=== PATIENT | female | born 1930 | race Caucasian/White ===

== ENCOUNTER 2016-08-14 21:17 | Inpatient (IN) | payer MEDICARE ==
--- NOTE | ~2016-08-14 | CN ---
Consultation Report [facility] [address] [place]. [address] NAME: JUJU MORRIS : 34 STATUS : ADM IN PAT#: [id number] AGE: 86 ADM/REG DATE : 08/15/16 MR#: [id number] REPORT SERV DATE: 08/17/16 DICTATED BY: TERRY GRACIA DATE: 08/17/16 REPORT STATUS : Draft TRANSCRIBED BY: MODL DATE: 08/17/16 INFECTIOUS DISEASE CONSULT DATE OF CONSULTATION: REASON FOR CONSULT: Bacteremia of unknown source. HISTORY OF PRESENT ILLNESS: An 86 years old white lady with history of paroxysmal atrial fibrillation, hypertension, hyperlipidemia, right knee replacement who was admitted for acute onset of chills with some mental status changes. There are no warning signs. She just had dinner when she started shaking. Her daughter was called and took her to the emergency room. The daughter spent the afternoon with her parents and everything was fine. When the daughter came back, the patient appeared to be unsteady and was shaking. At the hospital, she had a fever and mild leukocytosis. Testing done at the emergency room. CT of the brain showed no acute disease, no sinus disease. Urinalysis is unremarkable. WBC 12, platelets 170, creatinine 1, liver enzymes within normal limits. Chest x-ray, no active disease. Influenza screen negative. She was given vancomycin and Rocephin and yesterday the blood cultures came positive for group B strep. She feels better. She has no confusion, and she had no further fever until tonight, then she had a low-grade fever. She also had some hypoxemia, although no significant shortness of breath. Further workup showed a procalcitonin improvement from 8 to 6. WBC initially increased to 24,000, yesterday down to 21,000, platelets decreased today to 114. An echocardiogram showed good ejection fraction, but there were some sclerotic changes of the mitral valve with moderate mitral regurgitation. She had a CT of the abdomen and pelvis with contrast today, but there is no report and no images in the computer. CT of the chest without contrast yesterday showed some small pleural effusions and hiatal hernia. Upon discussing with the patient, she had no warning signs for this. No dysuria. No difficulty urinating. She does appear to have a vaginal prolapse, and she states that sometimes she has to push it back in herself. She has no pain in the area. No skin lesions or recent trauma to the skin. No diarrhea or constipation. No vomiting prior to this acute event. No toothaches, although she thinks she lost part of a feeling of right upper jaw teeth, but there is no pain at the site. No recent procedures. PAST MEDICAL HISTORY: As I mentioned above plus she had curettage a few years ago. She had significant anemia in 2014, and a colonoscopy did not show any abnormalities except for maybe hemorrhoids, the bowel looked normal. An EGD showed just a small hiatal hernia. Also noted that in 03/2014, she had positive blood cultures for group B strep collected in the emergency room, but the daughter is unaware of any such events. SOCIAL HISTORY: She is . Retired. Has no pets. FAMILY HISTORY: Diabetes and cancer. Consultation Report [address] [place]. [address] NAME: JUJU MORRIS : 34 STATUS : ADM IN LOCATED WITHIN [facility]#: [id number] AGE: 86 ADM/REG DATE : 08/15/16 MR#: [id number] REPORT SERV DATE: 08/17/16 DICTATED BY: TERRY GRACIA DATE: 08/17/16 REPORT STATUS : Draft TRANSCRIBED BY: GREG DATE: 08/17/16 ALLERGIES: AT THE AGE OF 21 PENICILLIN CAUSED A RASH. ALSO, SHE THINKS ERYTHROMYCIN CAUSED A RASH. NITROFURANTOIN IS LISTED, BUT SHE SEEMS UNAWARE OF THIS, AND THE DAUGHTER STATES THAT SHE HAD A UTI JUST ONE TIME AND SHE IS UNAWARE OF ANY REACTION TO AN ANTIBIOTIC. MEDICATIONS: On admission, amlodipine, Eliquis, vitamin C, Lipitor, dronedarone, iron-folic acid, lisinopril, multivitamin with minerals, vitamin B6, Evista, and calcium. PHYSICAL EXAMINATION: GENERAL: On exam, she is awake, not in distress. HEENT: No oral lesions. I did not see obvious inflammation of the right upper jaw. LUNGS: Clear to auscultation. HEART: Regular rhythm with a murmur at the right sternal border. ABDOMEN: Soft, nontender to palpation. RECTAL: Anal exam done in presence of the patient's nurse shows no bleeding hemorrhoids, no inflamed hemorrhoids, no sacral decubitus. EXTREMITIES: Right prosthetic knee without inflammatory changes. Feet and calves without any open wounds. Hands without lesions. ASSESSMENT AND PLAN: 1. Group B strep septicemia, very acute onset but no obvious source. She has some vaginal prolapse, but she does not describe any urinary symptoms. 2. Leukocytosis and thrombocytopenia. 3. Mitral valve sclerosis with moderate mitral regurgitation, but I do not know if these are new findings. 4. Right prosthetic knee but no signs of infection there. Antibiotic hernandez, could continue the Rocephin or use Ancef, but I think the vancomycin can be stopped. I will re- culture if she has fever follow up the CT of the abdomen and pelvis with IV contrast. For further details. Check a postvoid residual to make sure she does not retain urine. I expect about two weeks of antibiotics if she progresses well. I discussed the above with the patient and daughter and . They had the opportunity to ask questions. VIKTOR/GREG Terry Gracia M.D. / [id number] CC: Clif Dickens M.D.
--- NOTE | ~2016-08-14 | DS ---
Discharge Summary [facility] [id number] [place]. [address] NAME: JUJU MORRIS : 34 STATUS : DIS IN PAT#: [id number] AGE: 86 ADM/REG DATE : 08/15/16 MR#: [id number] REPORT SERV DATE: 08/20/16 DICTATED BY: RHONDA GOMEZ DATE: 08/20/16 REPORT STATUS : Draft TRANSCRIBED BY: GREG DATE: 08/20/16 ADMISSION DATE: 08/15/2016 DISCHARGE DATE: 08/20/2016 ADDENDUM: Please refer to previous discharge summary for further details. DISCHARGE FOLLOWUP: The patient is to follow up with primary care in one week for chest x- ray, follow up for hospital followup also. The patient will have another set of blood cultures in 15 to [address] Terry Lopez through [facility] and also, the patient is to have weekly CBC and CMPs through [facility] ordered by Dr. Terry Lopez, who will follow. DISCHARGE MEDICATIONS: Eliquis 2.5 mg p.o. b.i.d., Lipitor 20 mg p.o. q.h.s., Rocephin 1 g q.24 hours for nine days, Multaq 400 mg p.o. b.i.d., folic acid 0.4 mg p.o. daily, multivitamin p.o. daily, pyridoxine 100 mg p.o. daily, Evista 60 mg p.o. q.h.s., lisinopril 40 mg p.o. q.a.m. to restart in two days, calcium supplement, ascorbic acid 500 mg p.o. daily, Norvasc 5 mg p.o. q.h.s., Tylenol 650 mg p.o. b.i.d. p.r.n., albuterol MDI two puffs inhaled q.6 hours, the patient may restart her ferrous sulfate 325 p.o. daily after completion of her antibiotics. HOSPITAL COURSE: This is an addendum to the patient's interim summary/discharge summary. Please refer for further details. Case Management were able to get the patient's Home Health home IV antibiotics approved. Para one has been placed per Dr. Lopez's orders and approved by [facility] for IV home antibiotics. The patient will get a dose prior to discharge and we will IV antibiotics in the morning for nine days as orders written by Dr. Lopez. MAX/GREG Rhonda Gomez M.D. / [id number] CC: Clif Dickens M.D.
--- NOTE | ~2016-08-14 | HP ---
History And Physical [address] [address] NAME: JUJU MORRIS : 32 STATUS : ADM IN PAT#: [id number] AGE: 86 ADM/REG DATE : 08/15/16 MR#: [id number] REPORT SERV DATE: 08/15/16 DICTATED BY: DOLORES ZEPEDA DATE: 08/15/16 REPORT STATUS : Draft TRANSCRIBED BY: MODL DATE: 08/15/16 DATE OF ADMISSION: 08/15/2016 CHIEF COMPLAINT: An 86-year-old female presenting with confusion and rigors. HISTORY OF PRESENT ILLNESS: The patient's history was obtained through careful interview with the patient's and daughter, coupled with review of [facility] and [facility] medical records. The patient was in normal health early on the day of admission. She had gone out to a hair appointment with her daughter, but then shortly after supper at about 0715 hours in the evening, the patient became overtly confused and suddenly developed rigors, chills, and fevers. She had two episodes of vomiting, severe nausea. She became disoriented, had difficulty with balance, and was falling over to the side. She became dizzy and lightheaded. She describes chronic neck and back pain, shoulder pain, and soreness in her hips, but just a "mild" severity, not worsened by this illness. No diarrhea. No shortness of breath. Rare mildly productive cough. No specific abdominal discomfort. REVIEW OF SYSTEMS: Otherwise, complete review of systems was obtained and was negative with a 14-point review of systems obtained. PAST MEDICAL HISTORY: 1. Paroxysmal atrial fibrillation seen by Dr. Bauer. 2. Hypertension. 3. Elevated cholesterol. 4. GI bleed seen by Dr. Jese Goodrich. 5. Right upper lung nodule. 6. Left bundle-branch block. 7. Uterine polyps. 8. Moderate mitral regurgitation. 9. Peripheral arterial disease. PAST SURGICAL HISTORY: 1. Right breast surgery for benign disease. 2. Right knee surgery. 3. Appendectomy. ALLERGIES: PROCAINE, PHENERGAN, TETANUS, LIDOCAINE, PENICILLIN, ERYTHROMYCIN, FENTANYL, History And Physical [address] [address] NAME: ARTUROJUJU COFFEY : 32 STATUS : ADM IN PAT#: [id number] AGE: 86 ADM/REG DATE : 08/15/16 MR#: [id number] REPORT SERV DATE: 08/15/16 DICTATED BY: DOLORES ZEPEDA DATE: 08/15/16 REPORT STATUS : Draft TRANSCRIBED BY: GREG DATE: 08/15/16 NAZANIN. SOCIAL HISTORY: No tobacco abuse. No alcohol abuse. She is . Has one daughter, one grandson, two great grandchildren. FAMILY HISTORY: Two brothers with diabetes. Mother of cancer. Father at 36 years of age of kidney failure. CURRENT MEDICATIONS: Include Norvasc 5 mg p.o. daily, Eliquis 2.5 mg p.o. b.i.d., vitamin C, Lipitor 20 mg p.o. daily, Multaq 400 mg p.o. b.i.d., ferrous sulfate, folic acid, lisinopril 40 mg p.o. daily, multivitamin, vitamin B6, Evista 60 mg p.o. daily, calcium supplement. PHYSICAL EXAMINATION: VITAL SIGNS: Temperature 101.7, pulse 102, blood pressure 117/34, respiratory rate 24, O2 sat 98% on room air. GENERAL: Pleasant cooperative female. No evidence of distress at this time. HEENT: Pupils equal, round, and reactive to light. No conjunctival pallor. No scleral icterus. Nares are patent. Oropharynx is clear of obstruction, but the patient does have quite dry mucous membranes. NECK: Trachea midline. No thyromegaly. LYMPH: No cervical lymphadenopathy. No supraclavicular lymphadenopathy. RESPIRATORY: Clear to auscultation at bases. No wheezes, rales, or rhonchi. Normal respiratory effort. CARDIOVASCULAR: Tachycardic. Regular rhythm. No murmurs, rubs, or gallops. No extremity edema is appreciated. ABDOMEN: Completely soft, nontender, nondistended. No hepatosplenomegaly. DERMATOLOGICAL: Warm and dry. EXTREMITIES: No pallor. No cyanosis. PSYCHIATRIC: Currently, the patient has a normal affect. Good mood. NEUROLOGIC: She is alert and oriented x3. LABORATORY DATA: White blood cell count 12.4, hemoglobin 11, hematocrit 35, platelets 177. Sodium 149, potassium 4.3, chloride 109, bicarb 27, BUN 21, creatinine 1.0, glucose 148, lactic acid 1.0. Liver enzymes within normal limits. Urinalysis negative for infection. IMAGING STUDIES: 1. CT scan of the brain without contrast shows no acute intracranial process. 2. Chest x-ray by my own evaluation shows no acute cardiopulmonary process. ASSESSMENT AND PLAN: 1. Systemic inflammatory response syndrome with a quite severe presentation. The patient has encephalopathy that is quite dramatic. White blood cell count of 12.4, tachycardia and tachypnea. We will check blood cultures, but negative urinalysis and negative chest x-ray. I anticipate a two midnight plus admission to watch over on IV antibiotics, IV fluids, and await blood cultures. 2. Paroxysmal atrial fibrillation. Check telemetry. Continue Eliquis. 3. Vomiting. Check CT scan of the abdomen on the morning of August 15. History And Physical [address] [address] NAME: JUJU MORRIS : 32 STATUS : ADM IN [facility]#: [id number] AGE: 86 ADM/REG DATE : 08/15/16 MR#: [id number] REPORT SERV DATE: 08/15/16 DICTATED BY: DOLORES ZEPEDA DATE: 08/15/16 REPORT STATUS : Draft TRANSCRIBED BY: MODYosi DATE: 08/15/16 KPL/GREG Dolores Zepeda M.D. / [id number] CC: Clif Dickens M.D.
--- NOTE | ~2016-08-14 | IDS ---
Interim Discharge Summary [facility] [address] [place]. [address] NAME: JUJU MORRIS : 34 STATUS : ADM IN [facility]#: [id number] AGE: 86 ADM/REG DATE : 08/15/16 MR#: [id number] REPORT SERV DATE: 08/20/16 DICTATED BY: RHONDA GOMEZ DATE: 08/20/16 REPORT STATUS : Draft TRANSCRIBED BY: MODL DATE: 08/20/16 ADMISSION DATE: 08/15/2016 DISCHARGE DATE: DIAGNOSES: 1. Sepsis with Strep agalactiae bacteremia. 2. Encephalopathy, resolved. 3. Acute kidney injury, resolved. 4. History of chronic atrial fibrillation. 5. Hypoxia with mild bilateral pleural effusions, improved. CONSULTANTS: Infectious Disease, Dr. Terry Lopez. DIAGNOSTIC DATA: 1. CT of the chest, abdomen, and pelvis without contrast showing bibasilar pleural fluid, and dependent atelectasis. Slight cardiomegaly. Otherwise, no significant abnormalities within the chest. Minimal free fluid in the posterior cul-de-sac, nonspecific. Minimal cholelithiasis, but no pericholecystic inflammation. Otherwise negative CT of the abdomen and pelvis. 2. Echocardiogram, ejection fraction of 60% with moderate mitral regurgitation. Estimated pulmonary arterial pressure at the upper limits was normal. HOSPITAL COURSE: Please see H and P dictated by Dr. Francesco Chacko. An 86-year-old female, with a past medical history of paroxysmal atrial fibrillation being followed by Dr. Bauer, hypertension, peripheral artery disease, presents with encephalopathy with rigors. The patient presented to [facility] ER with sepsis like picture. She had a complaint also of vomiting with a negative CT of the abdomen and pelvis. Also, CT of the brain by ER physician, showed no acute intracranial pathology. The patient was admitted to the Hospitalist Service. The blood cultures grew out strep agalactiae in all cultures. The patient was seen by Infectious Disease. Her antibiotics were changed over to Rocephin per Dr. Terry Lopez. Her repeat blood cultures are no growth to date at this time. Also, the patient's CAT scans there were reviewed by hospitalist with Dr. Rodríguez radiologist and there is no signs of bony destruction, no signs of diskitis of the spine. The etiology of the patient's bacteremia is unknown. Also, the patient's initial urinalysis was nondiagnostic. She had a repeat urinalysis that was dirty and the micro lab also refused a repeat urine culture, due to less likelihood of true urinary tract infection. The plan at this time is to continue with IV Rocephin at home. The patient's hypoxia has improved. The nurse re- walked the patient to recheck O2 saturation again. So far, she is being greater than 89% on room air with ambulation. She is to continue with bronchodilators. She does not have any pneumonia, but did develop some pleural effusions for which the patient did have some pleural effusions on admission, but this was slightly enlarged with IV hydration, therefore, hydration was discontinued from admission, and the patient was diuresed with Bumex, and repeat chest x-ray showed improvement and very small pleural effusions, more so atelectasis, doubt any loculated effusion considering not seen on initial CAT scan. However, the patient is to have a repeat chest x-ray as an outpatient to be followed by her primary care physician which was recommended by Dr. Terry Lopez. He also ordered a Powerwand for the Interim Discharge Summary [address] [address] NAME: JUJU MORRIS : 34 STATUS : ADM IN [facility]#: [id number] AGE: 86 ADM/REG DATE : 08/15/16 MR#: [id number] REPORT SERV DATE: 08/20/16 DICTATED BY: RHONDA GOMEZ DATE: 08/20/16 REPORT STATUS : Draft TRANSCRIBED BY: GREG DATE: 08/20/16 patient to continue with IV antibiotics at home. The patient remained in the hospital until home health was set up for IV antibiotics. Most likely discharge tomorrow. The patient will be seen by Dr. Yamilet Mckeon, at that time, who will attend to the patient's care. I recommend follow up chest x-ray as an outpatient to be followed by her primary care physician. Also, please write an order for home health to discontinue the patient's Powerwand after completion of her Rocephin. Dr. Lopez has written for IV Rocephin for 10 days. MAX/GREG Rhonda Gomez M.D. / [id number] CC: Clif Dickens M.D.
[~2016-08-14 21:17] MED LIST: ASA5GR PO; ASAB PO; ASAEC PO; ASCRIPTIN PO; B 12; B 6; B COMPLEX OR; B-12 PO; B12250T PO; CALCET; CALCET PO; CALTRA600D PO; CALTRATE D PO; CALTRATE PO; CARD30 PO; CENTRUM SILVER; CENTRUM TAB1 TAB PO; CO Q-10100 MG PO; COQ10100 MG PO; CORDARONE PO; DIGITEK0.125 MG PO; DRONED400 PO; DYAZIDE1 CAP PO; ECOTRIN81 MG PO; ELIQUIS 2.5 MG2.5 MG PO; EVISTA60 PO; FERROUS SULF325 M1 PO; FESO4 PO; FOLIC ACID; FOLIC ACID 400MCG PO; FOLIC ACID PO; FOLIC ACID400 MC1 PO; FOLIC ACID800 MCG PO; FOLIC PO; LAN125 PO; LEVAQUIN750 MG PO; LIPITOR20 PO; LISINOPRIL40 MG PO; LOP100 PO; LOZOLTAB PO; MAGNESIUM CITRATE PO; MAX25 PO; MVI PO; NORMADYNE PO; NORV10 PO; ONE DAILY TABL0.4 MG PO; PEP20 PO; PLAVIX PO; PRADAXA150 MG PO; PRIN20 PO; PYRIDOXINE100 MG PO; SOMATAB PO; THERGRANM PO; TRAN200 PO; TYLENOL 8 HR650 MG PO; V-R VIT B-6100 MG PO; VIT B-SIX 50 MG50 MG PO; VITAMIN B-121000 MC1 SL; VITAMIN B-625 MG OR; VITAMIN C100 MG PO; VITC500 PO; XARELTO PO; ZESTRIL20 MG PO; ZETIA PO; [UNRECOGNIZED DRUG - OTHER]
[2016-08-14] MEDS ORDERED: FOLIC ACID400 MC1 PO (21:18)
[2016-08-14] MEDS ORDERED: MVI PO (21:18)
[2016-08-14] MEDS ORDERED: ELIQUIS 2.5 MG2.5 MG PO (21:18)
[2016-08-14] MEDS ORDERED: LISINOPRIL40 MG PO (21:19)
[2016-08-14] MEDS ORDERED: NORV5 PO (21:20)
[2016-08-14] MEDS ORDERED: CALCIUM OTC PO (21:20)
[2016-08-14] MEDS ORDERED: LIPITOR20 PO (21:20)
[2016-08-14] MEDS ORDERED: VITC500 PO (21:20)
[2016-08-14] MEDS ORDERED: FERROUS SULF325 M1 PO (21:21)
[2016-08-14] MEDS ORDERED: EVISTA60 PO (21:21)
[2016-08-14] MEDS ORDERED: MULTAQ400 MG PO (21:21)
[2016-08-14] MEDS ORDERED: 8 HOUR650 MG PO (21:23)
[2016-08-14 21:27] LABS: INFLUENZA A SCREEN NEGATIVE (NEGATIVE); INFLUENZA B SCREEN NEGATIVE (NEGATIVE)
[2016-08-14 21:29] LABS: BASOPHILS 0.1 %; BASOPHILS ABSOLUTE 0.01 10/3/uL (0.0-0.16); EOSINOPHILS 0.5 %; EOSINOPHILS ABSOLUTE 0.06 10/3/uL (0.0-0.53); HEMATOCRIT 35.4 % (36.0-48.0); HEMOGLOBIN 11.4 g/dL (12.0-16.0); IMMATURE GRANULOCYTES 0.2 %; IMMATURE GRANULOCYTES ABSOLUTE 0.02 10/3/uL (0.0-0.11); LYMPHOCYTES ABSOLUTE 1.12 10/3/uL (0.67-4.30); MANUAL DIFF NO %; MEAN CORPUS HGB CONC 32.2 g/dL (32.0-36.0); MEAN CORPUSCULAR HEMOGLOB 30.3 pg (26.0-34.0); MEAN CORPUSCULAR VOLUME 94.1 fL (80-100); MEAN PLATELET VOLUME 10.6 fL (9.2-13.0); MONOCYTES 4.4 %; MONOCYTES ABSOLUTE 0.54 10/3/uL (0.21-1.20); NEUTROPHILS 85.8 %; NEUTROPHILS ABSOLUTE 10.63 10/3/uL (2.02-8.40); PLATELET COUNT 177 10/3/uL (150-400); RBC DISTRIBUTION WIDTH 14.4 % (12.0-16.0); RED CELL COUNT 3.76 10/6/uL (4.0-5.6); WHITE BLOOD CELLS 12.4 10/3/uL (4.5-10.5)
[2016-08-14 21:42] LABS: ASCORBIC ACID (UR NOT ORDER) 20 (NEG); BILIRUBIN, URINE NEGATIVE (NEG); ER URINALYSIS TAT 0 Hrs 10 Mins; KETONE, URINE NEGATIVE (NEG); LEUKOCYTE ESTERASE(NOT OR NEG (NEG); NITRITE (URINE) NEG (NEG); WBC (NOT ORDERED) (RFLEX) < 1 (0-5)
[2016-08-14 21:48] LABS: ALKALINE PHOSPHATASE 46 U/L (45-117); BUN (BLOOD UREA NITROGEN) 21 MG/DL (6-23); CALCIUM, SERUM 8.8 MG/DL (8.5-10.4); CHLORIDE, SERUM 109 MMOL/L (96-112); CO2 (CARBON DIOXIDE) 27 MMOL/L (24-34); CREATININE 1.08 MG/DL (0.55-1.02); GFR AFRICAN AMERICAN 55 ML/MIN (>=60); GFR NON AFRICAN AMERICAN 47 ML/MIN (>=60); GLUCOSE, SERUM 148 MG/DL (60-99); POTASSIUM, SERUM 4.3 MMOL/L (3.5-5.3); SGOT(AST) 24 U/L (5-40); SGPT(ALT) 27 U/L (5-65); SODIUM, SERUM 144 MMOL/L (135-148); TOTAL BILIRUBIN 0.3 MG/DL (0-1.2)
[2016-08-14 21:50] LABS: ALBUMIN 3.8 G/DL (3.5-5.0); GLOBULIN 3.7 G/DL (2.5-4.1); TOTAL PROTEIN 7.5 G/DL (6.0-8.5)
[2016-08-15 08:20] LABS: HEMATOCRIT 29.3 % (36.0-48.0); HEMOGLOBIN 9.5 g/dL (12.0-16.0); MANUAL DIFF YES %; MEAN CORPUS HGB CONC 32.4 g/dL (32.0-36.0); MEAN CORPUSCULAR HEMOGLOB 30.5 pg (26.0-34.0); MEAN CORPUSCULAR VOLUME 94.2 fL (80-100); MEAN PLATELET VOLUME 10.1 fL (9.2-13.0); PLATELET COUNT 126 10/3/uL (150-400); RBC DISTRIBUTION WIDTH 14.6 % (12.0-16.0); RED CELL COUNT 3.11 10/6/uL (4.0-5.6); WHITE BLOOD CELLS 24.7 10/3/uL (4.5-10.5)
[2016-08-15 08:27] LABS: INTERNATIONAL NORMAL RATI 1.3 UNITS (-)
[2016-08-15 08:28] LABS: PARTIAL THROMBO TIME 35.2 SEC (22.5-37.2)
[2016-08-15 08:30] LABS: PROTIME (NOT ORD) 15.7 SEC (12.0-14.5)
[2016-08-15 08:41] LABS: A/G RATIO 0.9 (0.7-1.9); ALBUMIN 2.7 G/DL (3.5-5.0); ALKALINE PHOSPHATASE 28 U/L (45-117); BAND NEUTROPHILS 21 %; BUN (BLOOD UREA NITROGEN) 21 MG/DL (6-23); CALCIUM, SERUM 7.7 MG/DL (8.5-10.4); CHLORIDE, SERUM 114 MMOL/L (96-112); CO2 (CARBON DIOXIDE) 24 MMOL/L (24-34); CREATININE 1.12 MG/DL (0.55-1.02); GFR AFRICAN AMERICAN 52 ML/MIN (>=60); GFR NON AFRICAN AMERICAN 45 ML/MIN (>=60); GLUCOSE, SERUM 122 MG/DL (60-99); LYMPHOCYTES 3 %; LYMPHOCYTES ABSOLUTE (CALC) 0.74 10/3/uL (0.67-4.30); MONOCYTES 7 %; MONOCYTES ABSOLUTE (CALC) 1.73 10/3/uL (0.21-1.20); NEUTROPHILS ABSOLUTE (CALC) 22.23 10/3/uL (2.02-8.40); PLATELET ESTIMATE SLT DEC (ADEQUATE); RBC MORPHOLOGY NORM (NORMAL); SEGMENTED NEUTROPHIL (0) 69 %; SGOT(AST) 17 U/L (5-40); SGPT(ALT) 18 U/L (5-65); SODIUM, SERUM 146 MMOL/L (135-148); TOTAL BILIRUBIN 0.4 MG/DL (0-1.2); TOTAL NUCLEATED CELLS 100; TOTAL PROTEIN 5.7 G/DL (6.0-8.5); ULTRASENSITIVE TSH 0.547 MCIU/ML (0.358-3.740)
[2016-08-15 09:11] LABS: PROCALCITONIN 8.49 ng/mL (<0.5)
[2016-08-15 09:45] LABS: CPK 57 U/L (0-200)
[2016-08-15 09:47] LABS: CK-MB 0.5 NG/ML
[2016-08-15 13:14] LABS: CPK 50 U/L (0-200)
[2016-08-15 13:15] LABS: CK-MB 0.8 NG/ML; TROPONIN I 0.09 NG/ML (<0.05)
[2016-08-15 14:18] LABS: ASCORBIC ACID (UR NOT ORDER) NEG (NEG); BILIRUBIN, URINE NEGATIVE (NEG); KETONE, URINE NEGATIVE (NEG); LEUKOCYTE ESTERASE(NOT OR TRACE (NEG); WBC (NOT ORDERED) (RFLEX) 16 (0-5)
[2016-08-15 19:01] LABS: CPK 66 U/L (0-200)
[2016-08-15 19:03] LABS: CK-MB 0.7 NG/ML
[2016-08-15 20:22] LABS: INFLUENZA A SCREEN NEGATIVE (NEGATIVE)
[2016-08-15 20:23] LABS: INFLUENZA B SCREEN NEGATIVE (NEGATIVE)
[2016-08-16 10:33] LABS: BASOPHILS 0.1 %; BASOPHILS ABSOLUTE 0.03 10/3/uL (0.0-0.16); EOSINOPHILS 0 %; EOSINOPHILS ABSOLUTE 0.01 10/3/uL (0.0-0.53); HEMATOCRIT 28.8 % (36.0-48.0); HEMOGLOBIN 9.4 g/dL (12.0-16.0); IMMATURE GRANULOCYTES 0.3 %; IMMATURE GRANULOCYTES ABSOLUTE 0.06 10/3/uL (0.0-0.11); LYMPHOCYTES 9.5 %; LYMPHOCYTES ABSOLUTE 2.03 10/3/uL (0.67-4.30); MEAN CORPUS HGB CONC 32.6 g/dL (32.0-36.0); MEAN CORPUSCULAR HEMOGLOB 30.4 pg (26.0-34.0); MEAN CORPUSCULAR VOLUME 93.2 fL (80-100); MEAN PLATELET VOLUME 10.3 fL (9.2-13.0); MONOCYTES 6.3 %; MONOCYTES ABSOLUTE 1.34 10/3/uL (0.21-1.20); NEUTROPHILS 83.8 %; NEUTROPHILS ABSOLUTE 17.79 10/3/uL (2.02-8.40); PLATELET COUNT 114 10/3/uL (150-400); RBC DISTRIBUTION WIDTH 14.9 % (12.0-16.0); RED CELL COUNT 3.09 10/6/uL (4.0-5.6); WHITE BLOOD CELLS 21.3 10/3/uL (4.5-10.5)
[2016-08-16 10:35] LABS: MANUAL DIFF NO %
[2016-08-16 10:47] LABS: BUN (BLOOD UREA NITROGEN) 21 MG/DL (6-23); CALCIUM, SERUM 7.6 MG/DL (8.5-10.4); CHLORIDE, SERUM 112 MMOL/L (96-112); CK-MB 0.5 NG/ML; CO2 (CARBON DIOXIDE) 23 MMOL/L (24-34); CPK 59 U/L (0-200); CREATININE 1.03 MG/DL (0.55-1.02); GFR AFRICAN AMERICAN 58 ML/MIN (>=60); GFR NON AFRICAN AMERICAN 50 ML/MIN (>=60); GLUCOSE, SERUM 81 MG/DL (60-99); POTASSIUM, SERUM 3.5 MMOL/L (3.5-5.3); SODIUM, SERUM 144 MMOL/L (135-148); TROPONIN I 0.08 NG/ML (<0.05)
[2016-08-16 11:50] LABS: PROCALCITONIN 6.76 ng/mL (<0.5)
[2016-08-17 02:56] LABS: BASOPHILS 0.2 %; BASOPHILS ABSOLUTE 0.03 10/3/uL (0.0-0.16); EOSINOPHILS 0.1 %; EOSINOPHILS ABSOLUTE 0.01 10/3/uL (0.0-0.53); HEMATOCRIT 31.3 % (36.0-48.0); HEMOGLOBIN 10.5 g/dL (12.0-16.0); IMMATURE GRANULOCYTES 0.4 %; IMMATURE GRANULOCYTES ABSOLUTE 0.08 10/3/uL (0.0-0.11); LYMPHOCYTES 11.7 %; LYMPHOCYTES ABSOLUTE 2.11 10/3/uL (0.67-4.30); MEAN CORPUS HGB CONC 33.5 g/dL (32.0-36.0); MEAN CORPUSCULAR HEMOGLOB 31.3 pg (26.0-34.0); MEAN CORPUSCULAR VOLUME 93.4 fL (80-100); MEAN PLATELET VOLUME 10.8 fL (9.2-13.0); NEUTROPHILS 82.6 %; NEUTROPHILS ABSOLUTE 14.89 10/3/uL (2.02-8.40); PLATELET COUNT 114 10/3/uL (150-400); RBC DISTRIBUTION WIDTH 14.5 % (12.0-16.0); RED CELL COUNT 3.35 10/6/uL (4.0-5.6)
[2016-08-17 02:57] LABS: MANUAL DIFF NO %
[2016-08-17 03:13] LABS: BUN (BLOOD UREA NITROGEN) 18 MG/DL (6-23); CALCIUM, SERUM 7.8 MG/DL (8.5-10.4); CHLORIDE, SERUM 111 MMOL/L (96-112); CO2 (CARBON DIOXIDE) 25 MMOL/L (24-34); CREATININE 0.98 MG/DL (0.55-1.02); GFR AFRICAN AMERICAN 61 ML/MIN (>=60); GFR NON AFRICAN AMERICAN 53 ML/MIN (>=60); GLUCOSE, SERUM 118 MG/DL (60-99); POTASSIUM, SERUM 3.7 MMOL/L (3.5-5.3); SODIUM, SERUM 145 MMOL/L (135-148); VANCOMYCIN TROUGH 5.7 MCG/ML (10.0-20.0)
[2016-08-17 06:45] LABS: PROCALCITONIN 4.85 ng/mL (<0.5)
[2016-08-18 12:05] LABS: ASCORBIC ACID (UR NOT ORDER) 20 (NEG); BILIRUBIN, URINE NEGATIVE (NEG); KETONE, URINE NEGATIVE (NEG); LEUKOCYTE ESTERASE(NOT OR NEG (NEG); WBC (NOT ORDERED) (RFLEX) 10 (0-5)
[2016-08-19 06:39] LABS: BASOPHILS 0.1 %; BASOPHILS ABSOLUTE 0.01 10/3/uL (0.0-0.16); EOSINOPHILS 1.1 %; EOSINOPHILS ABSOLUTE 0.09 10/3/uL (0.0-0.53); HEMOGLOBIN 8.9 g/dL (12.0-16.0); IMMATURE GRANULOCYTES 0.6 %; IMMATURE GRANULOCYTES ABSOLUTE 0.05 10/3/uL (0.0-0.11); LYMPHOCYTES 23.2 %; LYMPHOCYTES ABSOLUTE 1.95 10/3/uL (0.67-4.30); MEAN CORPUS HGB CONC 33.7 g/dL (32.0-36.0); MEAN CORPUSCULAR HEMOGLOB 30.9 pg (26.0-34.0); MEAN CORPUSCULAR VOLUME 91.7 fL (80-100); MEAN PLATELET VOLUME 11.1 fL (9.2-13.0); MONOCYTES 13.3 %; MONOCYTES ABSOLUTE 1.12 10/3/uL (0.21-1.20); NEUTROPHILS 61.7 %; NEUTROPHILS ABSOLUTE 5.19 10/3/uL (2.02-8.40); PLATELET COUNT 124 10/3/uL (150-400); RBC DISTRIBUTION WIDTH 14.4 % (12.0-16.0); RED CELL COUNT 2.88 10/6/uL (4.0-5.6)
[2016-08-19 06:41] LABS: HEMATOCRIT 26.4 % (36.0-48.0); MANUAL DIFF NO %; WHITE BLOOD CELLS 8.4 10/3/uL (4.5-10.5)
[2016-08-19 06:47] LABS: BUN (BLOOD UREA NITROGEN) 15 MG/DL (6-23); CALCIUM, SERUM 7.8 MG/DL (8.5-10.4); CHLORIDE, SERUM 107 MMOL/L (96-112); CO2 (CARBON DIOXIDE) 24 MMOL/L (24-34); CREATININE 0.78 MG/DL (0.55-1.02); GFR AFRICAN AMERICAN 81 ML/MIN (>=60); GFR NON AFRICAN AMERICAN 70 ML/MIN (>=60); GLUCOSE, SERUM 132 MG/DL (60-99); POTASSIUM, SERUM 3.2 MMOL/L (3.5-5.3); SODIUM, SERUM 143 MMOL/L (135-148)
[2016-08-20 06:51] LABS: BUN (BLOOD UREA NITROGEN) 15 MG/DL (6-23); CALCIUM, SERUM 8.5 MG/DL (8.5-10.4); CHLORIDE, SERUM 108 MMOL/L (96-112); CREATININE 0.84 MG/DL (0.55-1.02); GFR AFRICAN AMERICAN 74 ML/MIN (>=60); GFR NON AFRICAN AMERICAN 64 ML/MIN (>=60); SODIUM, SERUM 144 MMOL/L (135-148)
[2016-08-20 06:52] LABS: CO2 (CARBON DIOXIDE) 29 MMOL/L (24-34); GLUCOSE, SERUM 96 MG/DL (60-99); POTASSIUM, SERUM 4.5 MMOL/L (3.5-5.3)
[2016-08-20] MEDS ORDERED: ROCEPH IM (18:46)
[2016-08-20] MEDS ORDERED: VENTOLIN HFA INH (18:54)
== END 2016-08-20 19:48 | disposition home health service (06) | DRG 871 ==
LOC: ER 21:17 → 5NO 08-15 00:12
PROVIDERS: Internal Medicine; Nurse Practitioner Acute Care; Obstetrics & Gynecology
PROC: 05HB33Z Insertion of Infusion Device into Right Basilic Vein, Percutaneous Approach (ICD-10-PCS; principal; 2016-08-20)
DX: A40.1 Sepsis due to streptococcus, group B (principal); G93.41 Metabolic encephalopathy; J90 Pleural effusion, not elsewhere classified; N17.9 Acute kidney failure, unspecified; I48.0 Paroxysmal atrial fibrillation; I10 Essential (primary) hypertension; R09.02 Hypoxemia; I34.0 Nonrheumatic mitral (valve) insufficiency; Z88.0 Allergy status to penicillin; Z88.1 Allergy status to other antibiotic agents; Z96.651 Presence of right artificial knee joint
CPT/HCPCS: 36569-52; 36600; 70450; 71010; 71020; 71035; 71250; 74174; 74176; 80048; 80053; 80202; 81001; 82550; 82553; 82962; 83605; 83735; 83880; 84145; 84443; 84484; 85025; 85610; 85730; 87040; 87070; 87077; 87150; 87186; 87205; 87449; 87804; 87880; 93005; 93306; 94640; 96374; 96375; 99285; A9270-GY; C1894; J2405; J3370